=== PATIENT | female | born 1960 | race Two or more races ===

== ENCOUNTER 2021-04-26 14:35 | Emergency (ER) | payer BC ==
[~2021-04-26] VITALS: Ht 167.6 cm; Wt 108.9 kg
[2021-04-26] MEDS ORDERED: PYRIDIUM DS200 MG PO (22:09)
[2021-04-26] MEDS ORDERED: MACRODANTIN100 M1 PO (22:09)
== END 2021-04-26 23:32 ==
LOC: ER 14:35
DX: N39.0 Urinary tract infection, site not specified (principal); I10 Essential (primary) hypertension; E11.9 Type 2 diabetes mellitus without complications